=== PATIENT | male | born 1955 | race Caucasian/White ===

== ENCOUNTER → 2020-03-07 | Outpatient (CLI) | payer OTHER, SELFPAY ==
[~2020-03-07] MED LIST: ELIQUIS5 M1 PO; ELIQUIS5 MG PO; HYDROCODON-ACE1 EAC4 PO; LATANOPROST 0.7.5 ML EYEBOTH; LISINOPRIL10 MG PO; LOPID TAB 600600 MG PO; LOVASTATIN20 MG PO; NOVOLIN 70100 UNIT/1 SC; OMEPRAZOLE20 MG PO; SYNTHROID 150150 MCG PO; TRAMADOL HCL50 MG PO
== END ==
LOC: CT 09:30
DX: I26.99 Other pulmonary embolism without acute cor pulmonale (principal); R91.1 Solitary pulmonary nodule
CPT/HCPCS: 36415; 71250; 85379

== ENCOUNTER 2020-06-17 19:48 | Emergency (ER) | payer OTHER ==
[2020-06-17 21:38] LABS: HEMOGLOBIN 15.1 gm/dl (14.0-17.5); RED BLOOD COUNT 5.06 M/UL (4.20-5.50); WHITE BLOOD COUNT 8.7 K/UL (4.5-11.0)
[2020-06-17 22:03] LABS: BUN/CREATININE RATIO 12 (0-10)
== END 2020-06-18 01:32 | disposition home or self-care (01) ==
LOC: ER1 19:48
PROVIDERS: Physician Assistant
DX: R06.00 Dyspnea, unspecified (principal); R05 Cough; E11.9 Type 2 diabetes mellitus without complications; I10 Essential (primary) hypertension; E03.9 Hypothyroidism, unspecified; Z87.891 Personal history of nicotine dependence; Z79.899 Other long term (current) drug therapy
CPT/HCPCS: 71045; 80053; 82550; 82553; 83874; 83880; 84484; 85025; 85379; 93005; 99285; Q9967

== ENCOUNTER → 2021-01-14 | Outpatient (CLI) | payer OTHER | LOC: CT 08:37 | DX: G70.00 Myasthenia gravis without (acute) exacerbation (principal) | CPT/HCPCS: 36415; 71270; 82565; Q9967 ==